=== PATIENT | male | born 1950 | race Caucasian/White ===

== ENCOUNTER 2022-11-26 18:18 | Emergency (ER) | payer MEDICARE, SELFPAY ==
--- NOTE | ~2022-11-26 | CT_ITS ---
EXAMINATION: CT HEAD WITHOUT CONTRAST CLINICAL INFORMATION: Worsening headache. COMPARISON: None available. TECHNIQUE: Contiguous axial imaging was performed from the skull base to vertex without intravenous administration of contrast. Multiplanar reformatted images are submitted. This CT examination was performed using dose optimization techniques as appropriate, variously including the following: *Automated exposure control *Adjustment of mA and/or kV according to patient size (this includes techniques or standardized protocols for targeted exams where dose is matched to indication/reason for exam; i.e. extremities or head) *Use of iterative reconstruction technique DLP: 680 mGy-cm FINDINGS: The ventricular system is normal in size and configuration. The bilateral hemispheres and the cerebellum show no acute mass, hemorrhage, infarction or extra-axial collection. The basilar cisterns are patent, and the sulci are not widened. The visualized paranasal sinuses appear clear. The mastoid air cells are well aerated and clear. CT/CT head/brain wo IV con IMPRESSION: No acute intracranial pathology.
[2022-11-26 18:25] VITALS: BP 181/98; PULSE 89; O2SAT 98
[2022-11-26 18:44] VITALS: BP 146/68; PULSE 68; RESP 18; TEMP 35.8; O2SAT 97; BMI 30.7
--- NOTE | 2022-11-26 18:44 | ECG_ITS ---
Test Reason : DIZZY Blood Pressure : / mmHG Vent. Rate : 073 BPM Atrial Rate : 073 BPM P-R Int : 170 ms QRS Dur : 096 ms QT Int : 410 ms P-R-T Axes : 028 070 017 degrees QTc Int : 451 ms Normal sinus rhythm Low voltage QRS Borderline ECG No previous ECGs available Referred By: Ana Cristina Gardiner Electronically Signed By:MARITZA CARRILLO
--- NOTE | 2022-11-26 18:49 | ED_ITS ---
HPI - Dizziness General Chief Complaint: Dizziness Stated Complaint: FLU LIKE SYMPTOMS Time Seen by Provider: 11/26/22 18:25 Source: patient Mode of arrival: EMS Limitations: no limitations History of Present Illness HPI Narrative: 72 yo male with PMH of vertigo, HTN, hyperlipidemia, hypothyroidism here with c/o headache and head feeling full for the last two days tonight went to get a drink at the bar (rarely drinks) and had one beer started to feel the room spinning anytime he moved. It reminds him of vertigo. He has no other neurologic symptoms but does feel slightly nauseated. He has not had a fever MD elicited complaint: dizziness Pertinent past history: BPPV Onset (ago): minute(s) (just prior to arrival ) Timing: sudden onset Severity: moderate Description: room spinning Context: change in body position History of similar symptoms: Yes Exacerbating factors: movement/ambulation and change in body position Relieving factors: rest, lying down and keeping eyes closed Associated symptoms: nausea and other (had a headache and ear fullness feeling 2 days prior) Related Data Previous Rx's Medication Instructions Recorded meclizine 25 mg tablet 25 mg PO TID PRN dizziness #30 tabs 11/26/22 ondansetron 4 mg disintegrating 4 mg PO Q8H PRN nausea and 11/26/22 tablet vomiting #20 tabs Allergies Allergy/AdvReac Type Severity Reaction Status Date / Time No Known Allergies Allergy Verified 11/26/22 18:42 [No Known Allergies*] Review of Systems Review of Systems: Constitutional : No Fever, No Chills, No Fatigue ENT/Mouth : No sore throat, No Rhinorrhea Eyes: No Eye Pain, No Swelling, No Redness Cardiovascular : No Chest Pain, No SOB, No Dyspnea on Exertion Respiratory : No Cough, No Sputum Gastrointestinal : pos Nausea, No Vomiting, No Diarrhea, No abdominal Pain Genitourinary : No Dysuria, No Urinary Frequency, No Hematuria, Musculoskeletal : No joint pain, No Myalgias, No Joint Swelling Skin : No Skin Lesions, No rash Neuro : No Weakness, No Numbness, pos Dizziness, positive Headache Psych : No Anxiety/Panic, No Depression Heme/Lymph: No Bruising, No Bleeding,No Lymphadenopathy Endocrine : No Polyuria, No Polydipsia All other systems reviewed and are negative [facility] Past Medical History Attestation statement: The following information was validated with the patient. Medical History Hyperlipidemia Hypertension Hypothyroidism Social History Social History Alcohol intake: current Alcohol intake frequency: 0-2 drinks per day Alcohol type: beer Patient Tobacco Use Status: Former Tobacco user Smoked in Last 30 Days: Yes Use of substances other than those prescribed or required for medical reasons: No Advance Directives: No Advance Directives Information Provided: No Physical Exam Vital Signs: Vital Signs: Last Vital Signs Temp 97.2 F 11/26/22 21:32 Pulse 84 11/26/22 21:32 Resp 16 11/26/22 21:32 BP 129/91 H 11/26/22 21:32 Pulse Ox 98 11/26/22 21:32 O2 Del Method Room Air 11/26/22 21:32 BMI result Body Mass Index 30.7 Appearance: Alert. Oriented X3. No acute distress. Eyes: Pupils equal, round and reactive to light. no nystagmus ENT: Pharynx normal. Neck: Normal inspection. Neck supple. CVS: Normal heart rate and rhythm. Pulses normal. Respiratory: No respiratory distress. Breath sounds normal. Abdomen: Soft and non-tender. Skin: Skin warm and dry. Normal skin color. Normal skin turgor. Extremities: No lower extremity edema. No calf ttp Neuro: Oriented X 3. No motor deficit. No sensory deficit. no dizziness when laying still occurs when he turns his head to the right Course Course Course Narrative: states symptoms fully resolved and feels much better - can sit up and has no dizziness, feels well enough to go home Medications Administered Discontinued Medications Generic Name Dose Route Start Last Admin Trade Name Alvinq PRN Reason Stop Dose Admin Lactated Ringer's 1,000 mls @ 999 mls/hr 11/26/22 18:45 11/26/22 20:39 Lr IV 11/26/22 19:45 Infused .Q1H1M AYSHA Infusion Meclizine HCl 25 mg 11/26/22 18:43 11/26/22 19:00 Meclizine Hcl 25 Mg Tablet PO 11/26/22 18:44 25 mg ONCE ONE Administration Ondansetron HCl 4 mg 11/26/22 18:43 11/26/22 19:00 Ondansetron Hcl 4 Mg/2 Ml Vial IVPUSH 11/26/22 18:44 4 mg ONCE ONE Administration Medical Decision Making Medical Decision Making [facility] Narrative: 72 yo male with PMH of PMH of vertigo, HTN, hyperlipidemia, hypothyroidism here with c/o dizziness room spinning no other neurologic deficits no neck pain mild headache and preceding ear fullness - at this time I will obtain basic labs, EKG, CT head for mass - given headache his symptoms go away with rest and closing eyes he has no numbness, weakness, vision changes or + 1 symptoms to suggest posterior stroke. IVF and medications ordered. Differential Diagnosis Differential Diagnoses: The differential diagnosis associated with the presentation includes vertigo, meniere's, dehydration, sinusitis Lab Data [facility] Lab Attestation statement: I reviewed the patient's lab results. 11/26/22 19:02 11/26/22 19:02 Labs: Lab Results 11/26/22 11/26/22 11/26/22 Range/Units 19:02 19:02 19:02 WBC 5.6 (4.8-10.8) X10*3/uL RBC 4.86 (4.60-5.80) X10*6/uL Hgb 15.3 (14.0-18.0) g/dl Hct 43.8 (42.0-52.0) % MCV 90.1 (80.0-98.0) fL MCH 31.5 (27.0-33.0) pg MCHC 34.9 (31.0-36.0) g/dl RDW 12.7 (11.0-16.0) % Plt Count 159 L (160-400) X10*3/uL MPV 9.7 (9.4-12.4) fL Immature Gran % (Auto) 0.4 (0.0-0.4) % Neut % (Auto) 63.5 (45-73) % Lymph % (Auto) 22.0 (20-40) % Kleberg % (Auto) 12.0 H (2-11) % Eos % (Auto) 1.4 (0-4) % Baso % (Auto) 0.7 (0-2) % Lymph # (Auto) 1.2 (1.2-4.9) X10*3/uL Kleberg # (Auto) 0.7 (0.1-1.2) X10*3/uL Eos # (Auto) 0.1 (0.0-0.4) X10*3/uL Baso # (Auto) 0.0 (0.0-0.2) X10*3/uL Abs Immat Gran (auto) 0.02 (0.00-0.03) X10*3/uL Absolute Neuts (auto) 3.6 (2.0-8.3) x10*3/uL Absolute Nucleated RBC 0.000 (0.0-0.012) X10*3/uL Nucleated RBC % (auto) 0.0 (0.0-0.2) /100WBC Sodium 139 (135-145) mmol/L Potassium 4.0 (3.3-5.1) mmol/L Chloride 109 H (96-108) mmol/L Carbon Dioxide 22 (22-29) mmol/L Anion Gap 12 (12-20) BUN 12 (9-16) mg/dL Creatinine 0.97 (0.5-1.4) mg/dL Estim Creat Clear Calc 85.2 Estimated GFR > 60 Random Glucose 115 (60-115) mg/dL Calcium 9.4 (8.4-10.2) mg/dL Magnesium 1.9 (1.6-2.6) mg/dL Total Bilirubin 0.6 (0.0-1.0) mg/dL Direct Bilirubin 0.2 (0.0-0.5) mg/dL AST 25 (5-37) U/L ALT 33 (0-40) U/L Alkaline Phosphatase 74 (39-117) U/L Troponin I High Sens < 2.7 (<3.5-35.0) ng/L Total Protein 7.0 (6.5-8.0) g/dL Albumin 4.1 (3.5-5.0) g/dL COVID-19 (MARY) (Negative) COVID-19 Clin Com 11/26/22 Range/Units 19:02 WBC (4.8-10.8) X10*3/uL RBC (4.60-5.80) X10*6/uL Hgb (14.0-18.0) g/dl Hct (42.0-52.0) % MCV (80.0-98.0) fL MCH (27.0-33.0) pg MCHC (31.0-36.0) g/dl RDW (11.0-16.0) % Plt Count (160-400) X10*3/uL MPV (9.4-12.4) fL Immature Gran % (Auto) (0.0-0.4) % Neut % (Auto) (45-73) % Lymph % (Auto) (20-40) % Kleberg % (Auto) (2-11) % Eos % (Auto) (0-4) % Baso % (Auto) (0-2) % Lymph # (Auto) (1.2-4.9) X10*3/uL Kleberg # (Auto) (0.1-1.2) X10*3/uL Eos # (Auto) (0.0-0.4) X10*3/uL Baso # (Auto) (0.0-0.2) X10*3/uL Abs Immat Gran (auto) (0.00-0.03) X10*3/uL Absolute Neuts (auto) (2.0-8.3) x10*3/uL Absolute Nucleated RBC (0.0-0.012) X10*3/uL Nucleated RBC % (auto) (0.0-0.2) /100WBC Sodium (135-145) mmol/L Potassium (3.3-5.1) mmol/L Chloride (96-108) mmol/L Carbon Dioxide (22-29) mmol/L Anion Gap (12-20) BUN (9-16) mg/dL Creatinine (0.5-1.4) mg/dL Estim Creat Clear Calc Estimated GFR Random Glucose (60-115) mg/dL Calcium (8.4-10.2) mg/dL Magnesium (1.6-2.6) mg/dL Total Bilirubin (0.0-1.0) mg/dL Direct Bilirubin (0.0-0.5) mg/dL AST (5-37) U/L ALT (0-40) U/L Alkaline Phosphatase (39-117) U/L Troponin I High Sens (<3.5-35.0) ng/L Total Protein (6.5-8.0) g/dL Albumin (3.5-5.0) g/dL COVID-19 (MARY) Negative (Negative) COVID-19 Clin Com See Note Independent Interpretation I performed an independent interpretation of an: EKG and CT Scan (no ICH) Interpretation: Rate: 73 Rhythm: NSR Enola: normal Normal P waves. Normal CORY. Normal QRS complex. ST T wave : normal no TREVON qTC: normal prior studies: no acute ischemia The study has been interpreted contemporaneously by me. . Radiology Impression Discussion of test interpretation with radiology: I have reviewed the radiologist's reading. Prescription Management I considered prescription management with: Other (zofran and meclizine) Discharge Plan Discharge Clinical Impression: Vertigo Patient Disposition: Home, Self-Care Instructions: Vertigo (ED) Additional Instructions: return for worsening pain, numbness, tingling, weakness, increased dizziness, vision changes or any other concerns. Prescriptions: New meclizine 25 mg tablet 25 mg PO TID PRN (Reason: dizziness) Qty: 30 0RF ondansetron 4 mg tablet,disintegrating 4 mg PO Q8H PRN (Reason: nausea and vomiting) Qty: 20 0RF
[2022-11-26] MEDS: Lactated Ringers 1,000 ML 999 ML IV (18:59)
[2022-11-26] MEDS: ondansetron HCL 4 MG/2 ML VIAL IVPUSH (19:00)
[2022-11-26] MEDS: Meclizine HCl 25 MG TABLET PO (19:00)
[2022-11-26 19:11] LABS: MANUAL DIFF FLAG NO
[2022-11-26 19:13] LABS: Basophils Percent Auto 0.7 % (0-2); Eosinophils Absolute Auto 0.1 X10*3/uL (0.0-0.4); Eosinophils Percent Auto 1.4 % (0-4); Hematocrit 43.8 % (42.0-52.0); Hemoglobin 15.3 g/dl (14.0-18.0); Imm Gran Abs Auto 0.02 X10*3/uL (0.00-0.03); Imm Gran Pct Auto 0.4 % (0.0-0.4); Lymphocytes Absolute Auto 1.2 X10*3/uL (1.2-4.9); Mean Corpuscular HGB Conc 34.9 g/dl (31.0-36.0); Mean Corpuscular Hemoglobin 31.5 pg (27.0-33.0); Mean Corpuscular Volume 90.1 fL (80.0-98.0); Mean Platelet Volume 9.7 fL (9.4-12.4); Monocytes Absolute Auto 0.7 X10*3/uL (0.1-1.2); Neutrophils Absolute Auto 3.6 x10*3/uL (2.0-8.3); Neutrophils Percent Auto 63.5 % (45-73); Platelet Count 159 X10*3/uL (160-400); Red Blood Count 4.86 X10*6/uL (4.60-5.80); Red Cell Distribution Width 12.7 % (11.0-16.0); White Blood Count 5.6 X10*3/uL (4.8-10.8)
[2022-11-26 19:29] LABS: COVID-19 Test Negative (Negative); IDNOW Serial# 08D9AD1C
[2022-11-26 19:32] LABS: Alanine Aminotransferase 33 U/L (0-40); Albumin Level 4.1 g/dL (3.5-5.0); Alkaline Phosphatase 74 U/L (39-117); Anion Gap 12 (12-20); Aspartate Amino Transferase 25 U/L (5-37); Bilirubin Direct 0.2 mg/dL (0.0-0.5); Bilirubin Total 0.6 mg/dL (0.0-1.0); Blood Urea Nitrogen 12 mg/dL (9-16); Calcium 9.4 mg/dL (8.4-10.2); Carbon Dioxide 22 mmol/L (22-29); Chloride 109 mmol/L (96-108); Creatinine Clr Calc Pharmacy 85.2; Estimated Glomerular Filt Rate > 60; Glucose Random 115 mg/dL (60-115); Magnesium 1.9 mg/dL (1.6-2.6); Sodium 139 mmol/L (135-145)
[2022-11-26 19:41] LABS: Troponin-I High Sensitivity < 2.7 ng/L (<3.5-35.0)
--- OUTSIDE RECORDS SUMMARY | 2022-11-26 19:45 | XMS_ITS | Continuity of Care Document ---
Author Name Unknown Organization [facility] Address [address] [facility] [place] [address]- Care Team Providers Care Leadership Coach Name Role Phone Juanito Huerta MD Primary Care Physician [phone] Encounter [facility] Date(s): 01/18/20 - 01/25/20 [facility] [address] [place] [address]- [facility] Attending Physician: Harmeet Galarza MD Admitting Physician: Harmeet Galarza MD Referring Physician: Juanito Huerta MD Allergies, Adverse Reactions, Alerts Substance Reaction Severity Status NKA Active Immunizations Given and Recorded Vaccine Date Status Refusal Reason influenza virus vaccine, inactivated 06/08/19 Give n influenza virus vaccine, inactivated 1 03/17/18 Gi noemí influenza virus vaccine, inactivated 2 03/17/17 Gi noemí pneumococcal 23-valent vaccine 3 03/17/18 Given tetanus/diphtheria/pertussis, acel(Tdap) 4 09/15/17 Given pneumococcal 13-valent vaccine 03/17/17 Given 1Result Comment: [03/17/2018] [facility] [id number] 2Result Comment: [03/17/2017] [facility] [id number] 3Result Comment: [03/17/2018] [facility] [id number] 4Result Comment: [09/15/2017] [facility] [id number] Medications aspirin 81 mg oral tablet 1 tablet = 81 mg, By Mouth, Daily, # 90 tablet, 0 Refills, Maintenance, 03/17/17 10:56:05, Tablet Start Date: 03/17/17 Status: Ordered levothyroxine 0.05 mg oral tablet 1 tablet = 50 mcg, By Mouth, Daily, # 90 tablet, 1 Refills, Maintenance, 08/24/19 13:11:00 EDT, Tablet, [id number], 179.4, cm, 06/08/19 14:11:00 EST, Height Start Date: 08/24/19 Status: Ordered lisinopril 10 mg oral tablet 10 mg, 1, tablet, By Mouth, Daily, # 90 tablet, Refills 1, Tot. Refills 1, Maintenance, 08/24/19 13:11:00 EDT, Route to Pharmacy Electronically, [id number], 179.4, cm, 06/08/19 14:11:00 EST, Height Start Date: 08/24/19 Status: Ordered pravastatin 40 mg oral tablet 1 tablet = 40 mg, By Mouth, Daily, # 90 tablet, 1 Refills, Maintenance, 08/24/19 13:11:00 EDT, Tablet, [facility], 179.4, cm, 06/08/19 14:11:00 EST, Height Start Date: 08/24/19 Status: Ordered Problem List Condition Effective Dates Status Health Status Inform ant Hypothyroidism (acquired)(Confirmed) Active Benign essential hypertension(Confirmed) Active Hyperlipidemia(Confirmed) Active Left inguinal hernia(Confirmed) Active Small bowel obstruction(Confirmed) Active Vital Signs Most recent to oldest [Reference Range]: 1 Height 179.4 cm (01/18/20 10:54 AM) Pulse Rate [55-90 bpm] 80 bpm (01/18/20 10:54 AM) Blood Pressure [90-138/55-84 mm Hg] 127/ 83mm Hg (01/18/20 10:54 AM) Temperature [96.8-100.4 DegF] 98.6 DegF (01/18/20 10:54 AM) Blood pressure sites Arm, right (01/18/20 10:54 AM) Temperature Route Oral (01/18/20 10:54 AM) Social History Social History Type Response Smoking Status Former smoker; Type: Cigarettes; Other: QUIT 1977-SMOKING 1/2 PPD-8 YR SMOKING HX; entered on: 03/17/17 Sex
--- OUTSIDE RECORDS SUMMARY | 2022-11-26 19:45 | XMS_ITS | Continuity of Care Document ---
Author Name Unknown Organization [facility] Address [address] [place] [address]- Care Team Providers Care Title Insurance Sales Representative Name Role Phone Juanito Huerta MD Primary Care Physician [facility] Date(s): 12/07/19 - 12/14/19 [facility] [address] [place] [address]- [facility] Attending Physician: Juanito Huerta MD Allergies, Adverse Reactions, [...] 13-valent vaccine 03/17/17 Given 1Result Comment: [03/17/2018] [facility] [id number] 2Result Comment: [03/17/2017] [facility] [id number] 3Result Comment: [03/17/2018] [facility] [id number] 4Result Comment: [09/15/2017] [facility] [id number] Medications aspirin 81 mg oral tablet 1 tablet = 81 mg, By Mouth, Daily, # 90 tablet, 0 Refills, Maintenance, 03/17/17 10:56:05, Tablet Start Date: 03/17/17 Status: Ordered levothyroxine 0.05 mg oral tablet 1 tablet = 50 mcg, By Mouth, Daily, # 90 tablet, 1 Refills, Maintenance, 08/24/19 13:11:00 EDT, Tablet, [id number], 179.4, cm, 06/08/19 14:11:00 EST, Height Start Date: 08/24/19 Status: Ordered lisinopril 10 mg oral tablet 10 mg, 1, tablet, By Mouth, Daily, # 90 tablet, Refills 1, Tot. Refills 1, Maintenance, 08/24/19 13:11:00 EDT, Route to Pharmacy Electronically, [id number], 179.4, cm, 06/08/19 14:11:00 EST, Height Start Date: 08/24/19 Status: Ordered pravastatin 40 mg oral tablet 1 tablet = 40 mg, By Mouth, Daily, # 90 tablet, 1 Refills, Maintenance, 08/24/19 13:11:00 EDT, Tablet, [facility], 179.4, cm, 06/08/19 14:11:00 EST, Height Start Date: 08/24/19 Status: Ordered Problem List Condition Effective Dates Status Health Status Inform ant Hypothyroidism (acquired)(Confirmed) Active Benign essential hypertension(Confirmed) Active Hyperlipidemia(Confirmed) Active Left inguinal hernia(Confirmed) Active Small bowel obstruction(Confirmed) Active Vital Signs Most recent to oldest [Reference Range]: 1 Height 179.4 cm (12/07/19 6:59 AM) Weight 102.0 kg (12/07/19 6:59 AM) Oxygen Saturation [94-100 %] 96 % (12/07/19 6:59 AM) Pulse Rate [55-90 bpm] 60 bpm (12/07/19 6:59 AM) Body Mass Index [18.5-24.99] 31.69 *>HHI* (12/07/19 6:59 AM) Blood Pressure [90-138/55-84 mm Hg] 130/ 70mm Hg (12/07/19 6:59 AM) Temperature [96.8-100.4 DegF] 98.4 DegF (12/07/19 6:59 AM) Mode of Delivery (Oxygen) Room air (12/07/19 6:59 AM) Blood pressure sites Arm, left (12/07/19 6:59 AM) Temperature Route Oral (12/07/19 6:59 AM) Weight Obtained Via Standing scale (12/07/19 6:59 AM) Social History Social History Type Response Smoking Status Former smoker; Type: Cigarettes; Other: QUIT 1976-SMOKING 1/2 PPD-8 YR SMOKING HX; entered on: 03/17/17 Sex
--- OUTSIDE RECORDS SUMMARY | 2022-11-26 19:45 | XMS_ITS | Continuity of Care Document ---
Author Name Unknown Organization [facility] Address [address] [place] [address]- Care Team Providers Care Photograph Retoucher Name Role Phone Juanito Huerta MD Primary Care Physician Encounter [facility] Date(s): 06/08/19 - 06/15/19 [facility] [address] [place] [address]- [facility] Attending Physician: Juanito Huerta MD Allergies, [...] 13-valent vaccine 03/17/17 Given 1Result Comment: [03/17/2018] [facility] [id number] 2Result Comment: [03/17/2017] [facility] [id number] 3Result Comment: [03/17/2018] [facility] [id number] 4Result Comment: [09/15/2017] [facility] [id number] Medications aspirin 81 mg oral tablet 1 tablet = 81 mg, By Mouth, Daily, # 90 tablet, 0 Refills, Maintenance, 03/17/17 10:56:05, Tablet Start Date: 03/17/17 Status: Ordered levothyroxine 0.05 mg oral tablet 1 tablet = 50 mcg, By Mouth, Daily, # 90 tablet, 3 Refills, Maintenance, 06/16/18 6:48:30 EST, Tablet Start Date: 06/16/18 Status: Ordered lisinopril 10 mg oral tablet 10 mg, 1, tablet, By Mouth, Daily, # 90 tablet, Refills 3, Tot. Refills 3, Maintenance, 07/19/18 14:29:15 EST, Route to Pharmacy Electronically, [id number] [id number] Start Date: 07/19/18 Status: Ordered pravastatin 40 mg oral tablet 1 tablet = 40 mg, By Mouth, Daily, # 90 tablet, 3 Refills, Maintenance, 07/19/18 14:29:27 EST, Tablet Start Date: 07/19/18 Status: Ordered Problem List Condition Effective Dates Status Health Status Inform ant Hypothyroidism (acquired)(Confirmed) Active Benign essential hypertension(Confirmed) Active Hyperlipidemia(Confirmed) Active Left inguinal hernia(Confirmed) Active Small bowel obstruction(Confirmed) Active Vital Signs Most recent to oldest [Reference Range]: 1 Height 179.4 cm (06/08/19 2:11 PM) Weight 103.6 kg (06/08/19 2:11 PM) Oxygen Saturation [94-100 %] 98 % (06/08/19 2:11 PM) Pulse Rate [55-90 bpm] 89 bpm (06/08/19 2:11 PM) Body Mass Index [18.5-24.99] 32.19 *>HHI* (06/08/19 2:11 PM) Blood Pressure [90-138/55-84 mm Hg] 124/ 80mm Hg (06/08/19 2:11 PM) Temperature [96.8-100.4 DegF] 97.7 DegF (06/08/19 2:11 PM) Blood pressure sites Arm, left (06/08/19 2:11 PM) Social History Social History Type Response Smoking Status Former smoker; Type: Cigarettes; Other: QUIT 1976-SMOKING / PPD-8 YR SMOKING HX; entered on: 03/17/17 Sex
--- OUTSIDE RECORDS SUMMARY | 2022-11-26 19:45 | XMS_ITS | Continuity of Care Document ---
Author Name Unknown Organization [facility] Address [address] [facility] [place] [address]- Care Team Providers Care Roll Capper Name Role Phone Deanna MARQUEZ, Juanito Nash Primary Care Physician Encounter [facility] Date(s): 12/09/19 - 01/08/20 [facility] [address] [place] [address]- [facility] Allergies, Adverse Reactions, Alerts Substance Reaction Severity Status NKA Active Immunizations Given and Recorded Vaccine Date Status Refusal Reason influenza virus vaccine, inactivated 06/08/19 Give n influenza virus vaccine, inactivated 1 03/17/18 Gi noemí influenza virus vaccine, inactivated 2 03/17/17 Gi noemí pneumococcal 23-valent vaccine 3 03/17/18 Given tetanus/diphtheria/pertussis, acel(Tdap) 4 09/15/17 Given pneumococcal 13-valent vaccine 03/17/17 Given 1Result Comment: [03/17/2018] [facility] [id number] 2Result Comment: [03/17/2017] [facility] [id number] 3Result Comment: [03/17/2018] [facility] [id number] 4Result Comment: [09/15/2017] [facility] [id number] Medications aspirin 81 mg oral tablet 1 tablet = 81 mg, By Mouth, Daily, # 90 tablet, 0 Refills, Maintenance, 03/17/17 10:56:05, Tablet Start Date: 03/17/17 Status: Ordered levothyroxine 0.05 mg oral tablet 1 tablet = 50 mcg, By Mouth, Daily, # 90 tablet, 1 Refills, Maintenance, 08/24/19 13:11:00 EDT, Tablet, [facility], 179.4, cm, 06/08/19 14:11:00 EST, Height Start Date: 08/24/19 Status: Ordered lisinopril 10 mg oral tablet 10 mg, 1, tablet, By Mouth, Daily, # 90 tablet, Refills 1, Tot. Refills 1, Maintenance, 08/24/19 13:11:00 EDT, Route to Pharmacy Electronically, [facility], 179.4, cm, 06/08/19 14:11:00 EST, Height Start Date: 08/24/19 Status: Ordered pravastatin 40 mg oral tablet 1 tablet = 40 mg, By Mouth, Daily, # 90 tablet, 1 Refills, Maintenance, 08/24/19 13:11:00 EDT, Tablet, [facility], 179.4, cm, 06/08/19 14:11:00 EST, Height Start Date: 08/24/19 Status: Ordered Problem List Condition Effective Dates Status Health Status Inform ant Hypothyroidism (acquired)(Confirmed) Active Benign essential hypertension(Confirmed) Active Hyperlipidemia(Confirmed) Active Left inguinal hernia(Confirmed) Active Small bowel obstruction(Confirmed) Active Social History Social History Type Response Smoking Status Former smoker; Type: Cigarettes; Other: QUIT 1976-SMOKING 1/2 PPD-8 YR SMOKING HX; entered on: 03/17/17 Sex
--- OUTSIDE RECORDS SUMMARY | 2022-11-26 19:45 | XMS_ITS | Continuity of Care Document ---
Author Name Unknown Organization [facility] Address [address] [place] [address] [address] [place] [address]- Care Team Providers Care Urology Nurse Name Role Phone Deanna MARQUEZ, Juanito Nash Primary Care Physician Encounter [facility] Date(s): 04/18/19 - 08/16/[address] [place] [address]- [facility] Attending Physician: Mi Stafford MD Allergies, Adverse Reactions, Alerts Substance Reaction Severity Status NKA Active Immunizations Given and Recorded Vaccine Date Status Refusal Reason influenza virus vaccine, inactivated 06/08/19 Give n influenza virus vaccine, inactivated 1 03/17/18 Gi noemí influenza virus vaccine, inactivated 2 03/17/17 Gi noemí pneumococcal 23-valent vaccine 3 03/17/18 Given tetanus/diphtheria/pertussis, acel(Tdap) 4 09/15/17 Given pneumococcal 13-valent vaccine 03/17/17 Given 1Result Comment: [03/17/2018] [facility] [id number] 2Result Comment: [03/17/2017] [facility] [id number] 3Result Comment: [03/17/2018] [facility] [id number] 4Result Comment: [09/15/2017] [facility] [id number] Medications aspirin 81 mg oral tablet 1 [...] 07/19/18 14:29:15 EST, Route to Pharmacy Electronically, [id number], [facility] [id number] Start Date: 07/19/18 Status: Ordered pravastatin 40 [...] Former smoker; Type: Cigarettes; Other: QUIT 1976-SMOKING /2 PPD-8 YR SMOKING HX; entered on: 03/17/17 Sex
--- OUTSIDE RECORDS SUMMARY | 2022-11-26 19:45 | XMS_ITS | Continuity of Care Document ---
Author Name Unknown Organization [facility] Devante Baxter Giovany lt Address [address] [place] [address]- Care Team Providers Care Yeast Fermentation Attendant Name Role Phone Juanito Huerta MD Primary Care Physician Encounter [facility] Date(s): 09/08/22 - 09/15/22 [facility] Devante Baxter Adult [address] [place] [address]- Attending Physician: Juanito Huerta MD Allergies, Adverse Reactions, Alerts No Known Allergies Immunizations Given and Recorded Vaccine Date Status Refusal Reason influenza virus vaccine, inactivated 03/11/22 Give n influenza virus vaccine, inactivated 04/05/20 Hay rded influenza virus vaccine, inactivated 06/08/19 Give n influenza virus vaccine, inactivated 1 03/17/18 Gi noemí influenza virus vaccine, inactivated 2 03/17/17 Gi noemí influenza virus vaccine, inactivated 02/17/15 Hay rded SARS-CoV-2 (COVID-19) mRNA-1273 vaccine 09/12/21 R ecorded SARS-CoV-2 (COVID-19) mRNA BNT-162b2 vac 10/10/20 Recorded SARS-CoV-2 (COVID-19) mRNA BNT-162b2 vac 09/19/20 Recorded pneumococcal 23-valent vaccine 3 03/17/18 Given tetanus/diphtheria/pertussis, acel(Tdap) 4 09/15/17 Given pneumococcal 13-valent vaccine 03/17/17 Given 1Result Comment: [03/17/2018] [facility] 4921-403-88 2Result Comment: [03/17/2017] [facility] 58998-506-91 3Result Comment: [03/17/2018] [facility] [id number] 4Result Comment: [09/15/2017] [facility] 69633-674-50 Medications aspirin 81 mg oral tablet 1 tablet = 81 mg, By Mouth, Daily, # 90 tablet, 0 Refills, Maintenance, 03/17/17 10:56:05, Tablet Start Date: 03/17/17 Status: Ordered Flonase 50 mcg/inh nasal spray 1 sprays, Nares, Both, 2 times a day, # 16 Gm, 0 Refills, Maintenance, 08/25/22 10:17:00 EDT, [place], [facility], Partial fill upon patient request if the prescription is for a schedule II opioid drug., 1 sprays Nares, Both 2 times a day, 17... Start Date: 08/25/22 Status: Ordered levothyroxine 0.05 mg oral tablet 1 tablet, By Mouth, Daily, # 90 tablet, 1 Refills, Maintenance, 06/30/22 14:10:00 EST, [facility], 179.4, cm, 03/11/22 12:43:00 EDT, Height Start Date: 06/30/22 Status: Ordered lisinopril 10 mg oral tablet 1, tablet, By Mouth, Daily, # 90 tablet, Refills 1, Tot. Refills 1, Maintenance, 06/30/22 14:18:00 EST, Route to Pharmacy Electronically, [facility], 179.4, cm, 03/11/22 12:43:00 EDT, Height Start Date: 06/30/22 Status: Ordered pravastatin 40 mg oral tablet 1 tablet, By Mouth, Daily, # 90 tablet, 1 Refills, Maintenance, 06/30/22 14:10:00 EST, [facility], 179.4, cm, 03/11/22 12:43:00 EDT, Height Start Date: 06/30/22 Status: Ordered Problem List Condition Confirmation Course Effective Dates Status H ealth Status Informant Hypothyroidism (acquired) Confirmed Active Benign essential hypertension Confirmed Active Hyperlipidemia Confirmed Active Left inguinal hernia Confirmed Active Pulmonary nodule Confirmed Active Obese class I Confirmed Active Prediabetes Confirmed Active Small bowel obstruction Confirmed Active Vital Signs Most recent to oldest [Reference Range]: 1 Height 178.0 cm (09/08/22 2:25 PM) Weight 103.9 kg (09/08/22 2:25 PM) Oxygen Saturation [94-100 %] 97 % (09/08/22 2:25 PM) Pulse Rate [55-90 bpm] 82 bpm (09/08/22 2:25 PM) Body Mass Index [18.5-24.99 kg/m2] 32.79 kg/m2 *>HHI* (09/08/22 2:25 PM) Blood Pressure [90-138/55-84 mm Hg] 128/ 71mm Hg (09/08/22 2:25 PM) Mode of Delivery (Oxygen) Room air (09/08/22 2:25 PM) Blood pressure sites Arm, left (09/08/22 2:25 PM) Weight Obtained Via Standing scale (09/08/22 2:25 PM) Social History Social History Type Response Smoking Status Former smoker; Type: Cigarettes; Other: QUIT 1977-SMOKING 1/2 PPD-8 YR SMOKING HX; entered on: 03/17/17 Sex Note * Rosalinda Grant: PERFORM, SIGN, VERIFY Event Display: Patient Education/Instruction Authored Date: [id number] [facility] *BMP So Sahil Diaz Clinical Summary Name REZA BOURGEOIS Age 72 Years 1950 PCP Deanna MARQUEZ, Juanito Nash PCP Visit Date 09/08/2022 14:17:00 Additional Instructions: Scheduled Appointments?? Future Appointments ?No Future Appointments Scheduled Follow-Up Instructions ?? Diagnosis Hypothyroidism, unspecified; Unilateral inguinal hernia, without obstruction or gangrene, not specified as recurrent; Impacted cerumen, unspecified ear; Essential (primary) hypertension; Encounter for general adult medical examination without abnormal findings; Hyperlipidemia, unspecified Medications: Please continue your medications until treatment is completed or stopped by your provider. Discuss any questions related to medications with your provider. Medications to Continue with No Changes These medications were not printed or sent to your pharmacy Aspirin (aspirin 81 mg oral tablet) 1 tab(s) Oral Daily. Next Dose: Fluticasone Nasal (Flonase 50 mcg/inh nasal spray) 1 spray(s) Nares, Both twice a day. Refills: 0. Next Dose: Levothyroxine (levothyroxine 0.05 mg oral tablet) 1 tab(s) Oral Daily. Refills: 1. Next Dose: Lisinopril (lisinopril 10 mg oral tablet) 1 tab(s) Oral Daily. Refills: 1. Next Dose: Pravastatin (pravastatin 40 mg oral tablet) 1 tab(s) Oral Daily. Refills: 1. Next Dose: Allergy Info:?? NKA Medications Given This Visit Future Orders ?No future orders Vital Signs Height 178.0 cm Weight 103.9 kg BMI 32.79 kg/m2 Blood Pressure 128 mm Hg/71 mm Hg Temperature Pulse Rate 82 bpm Respiratory Rate 02 Sat Mode of Delivery 97 %/Room air You can now view a summary of your hospital visit from the comfort of your home through a free online portal called [employer]. [employer] is a website that allows you to securely view your medical information including discharge summary, medications and follow-up visits. ??You can alsosend a secure electronic message to your doctor???s office to request appointments, renew medications or just ask a question. You can enroll at [email or web address] or register during your next office visit. Disclaimer:?? The information provided is of a general nature and is intended to be used in conjunction with the recommendations and advice of your health care practitioner. ??Every effort has been made to ensure that the information provided is accurate and complete at the time it is provided to you however, as your needs change, or, as new ??information becomes available, different or additional instructions may be required. If you have questions, please consult with your primary care provider or pharmacist, as appropriate. ??This information is not intended to serve as substitution for assessment and evaluation by a qualified health care provider. If you do not have a primary care provider, you may find a [facility] provider by calling [facility] at [phone]. For information about the plan of care including goals and instructions for your diagnosis, please see the patient education orders section of this document. Patient Education Materials?? The content of this educational material or handout may have been modified, supplemented, or adapted from its original content and format to support your individualized medical care. Patient Care team information Care Team Personnel Name: Deanna MARQUEZ, Juanito Nash Position: [facility] Primary Care Physician Member Role: PCP Address: Address: [address] [place] [address]- Care Team Related Persons Name: KENTON BOURGEOIS
--- OUTSIDE RECORDS SUMMARY | 2022-11-26 19:45 | XMS_ITS | Continuity of Care Document ---
Author Name Unknown Organization [facility] Sahil Giovany lt Address [address] [place] [address]- Care Team Providers Care Education Research Analyst Name Role Phone Juanito Huerta MD Primary Care Physician Encounter [facility] [place] Date(s): 09/04/21 - 09/11/21 [facility] Sahil Adult [address] [place] [address]- Attending Physician: Juanito Huerta MD Allergies, Adverse Reactions, Alerts No Known Allergies Immunizations Given and Recorded Vaccine Date Status Refusal Reason SARS-CoV-2 (COVID-19) mRNA BNT-162b2 vac 10/10/20 Recorded SARS-CoV-2 (COVID-19) mRNA BNT-162b2 vac 09/19/20 Recorded influenza virus vaccine, inactivated 04/05/20 Hay rded influenza virus vaccine, inactivated 06/08/19 Give n influenza virus vaccine, inactivated 1 03/17/18 Gi noemí influenza virus vaccine, inactivated 2 03/17/17 Gi noemí influenza virus vaccine, inactivated 02/17/15 Hay rded pneumococcal 23-valent vaccine 3 03/17/18 Given tetanus/diphtheria/pertussis, acel(Tdap) 4 09/15/17 Given pneumococcal 13-valent vaccine 03/17/17 Given 1Result Comment: [03/17/2018] [facility] 4921-403-88 2Result Comment: [03/17/2017] [facility] 26828-530-02 3Result Comment: [03/17/2018] [facility] [id number] 4Result Comment: [09/15/2017] [facility] 46121-782-40 Medications aspirin 81 mg oral tablet 1 tablet = 81 mg, By Mouth, Daily, # 90 tablet, 0 Refills, Maintenance, 10/11/17 10:56:05, Tablet Start Date: 03/17/17 Status: Ordered levothyroxine 0.05 mg oral tablet 1 tablet = 50 mcg, By Mouth, Daily, # 90 tablet, 3 Refills, Maintenance, 06/14/20 7:11:00 EST, [place], [facility], 179.4, cm, 06/14/20 6:58:00 EST, Height Start Date: 06/14/20 Status: Ordered lisinopril 10 mg oral tablet 1, tablet, By Mouth, Daily, # 90 tablet, Refills 1, Route to Pharmacy Electronically, [facility], 179.4, cm, 02/20/21 9:48:00 EDT, Height Start Date: 06/25/21 Status: Ordered pravastatin 40 mg oral tablet 1 tablet, By Mouth, Daily, # 90 tablet, 1 Refills, [facility], 179.4, cm, 02/20/21 9:48:00 EDT, Height Start Date: 06/25/21 Status: Ordered Problem List Condition Effective Dates Status Health Status Inform ant Hypothyroidism (acquired)(Confirmed) Active Benign essential hypertension(Confirmed) Active Hyperlipidemia(Confirmed) Active Left inguinal hernia(Confirmed) Active Pulmonary nodule(Confirmed) Active Obese class I(Confirmed) Active Prediabetes(Confirmed) Active Small bowel obstruction(Confirmed) Active Vital Signs Most recent to oldest [Reference Range]: 1 2 Height 179.4 cm (09/04/21 9:06 AM) 179.4 cm (09/04/21 9:00 AM) Weight 101.1 kg (09/04/21 9:06 AM) 101.1 kg (09/04/21 9:00 AM) Oxygen Saturation [94-100 %] 98 % (09/04/21 9:06 AM) Pulse Rate [55-90 bpm] 78 bpm (09/04/21 9:06 AM) Body Mass Index [18.5-24.99] 31.41 *>HHI* (09/04/21 9:06 AM) 31.41 *>HHI* (09/04/21 9:00 AM) Blood Pressure [90-138/55-84 mm Hg] 130/ 77mm Hg (09/04/21 9:06 AM) Temperature [96.8-100.4 DegF] 97.9 DegF (09/04/21 9:06 AM) Mode of Delivery (Oxygen) Room air (09/04/21 9:06 AM) Blood pressure sites Arm, left (09/04/21 9:06 AM) Temperature Route Oral (09/04/21 9:06 AM) Social History Social History Type Response Smoking Status Former smoker; Type: Cigarettes; Other: QUIT 1976-SMOKING 1/2 PPD-8 YR SMOKING HX; entered on: 03/17/17 Sex
--- OUTSIDE RECORDS SUMMARY | 2022-11-26 19:45 | XMS_ITS | Continuity of Care Document ---
Author Name Unknown Organization [facility] Giovany lt Address [address] [place] [address]- Care Team Providers Care Python Web Developer Name Role Phone Juanito Huerta MD Primary Care Physician Encounter [facility] Date(s): 02/20/21 - 02/27/21 [facility] Adult [address] [place] [address]- Attending Physician: Juanito Huerta MD Allergies, Adverse Reactions, Alerts Substance Reaction Severity Status NKA Active Immunizations Given and Recorded Vaccine Date Status Refusal Reason influenza virus vaccine, inactivated /07/27 Give n influenza virus vaccine, inactivated 1 03/17/18 Gi noemí influenza virus vaccine, inactivated 2 03/17/17 Gi noemí pneumococcal 23-valent vaccine 3 03/17/18 Given tetanus/diphtheria/pertussis, acel(Tdap) 4 09/15/17 Given pneumococcal 13-valent vaccine 03/17/17 Given 1Result Comment: [03/17/2018] [facility] 4921-403-88 2Result Comment: [03/17/2017] [facility] [id number] 3Result Comment: [03/17/2018] [facility] [id number] 4Result Comment: [09/15/2017] [facility] 05669-761-37 Medications aspirin 81 mg oral tablet 1 tablet = 81 mg, By Mouth, Daily, # 90 tablet, 0 Refills, Maintenance, 03/17/17 10:56:05, Tablet Start Date: 03/17/17 Status: Ordered levothyroxine 0.05 mg oral tablet 1 tablet = 50 mcg, By Mouth, Daily, # 90 tablet, 3 Refills, Maintenance, 06/14/20 7:11:00 EST, Tablet, [facility], 179.4, cm, 06/14/20 6:58:00 EST, Height Start Date: 06/14/20 Status: Ordered lisinopril 10 mg oral tablet 10 mg, 1, tablet, By Mouth, Daily, # 90 tablet, Refills 3, Tot. Refills 3, Maintenance, 06/14/20 7:11:00 EST, Route to Pharmacy Electronically, [facility], 179.4, cm, 06/14/20 6:58:00 EST,Height Start Date: 06/14/20 Status: Ordered pravastatin 40 mg oral tablet 1 tablet = 40 mg, By Mouth, Daily, # 90 tablet, 3 Refills, Maintenance, 06/14/20 7:11:00 EST, Tablet, [facility], 179.4, cm, 06/14/20 6:58:00 EST, Height Start Date: 06/14/20 Status: Ordered Problem List Condition Effective Dates Status Health Status Inform ant Hypothyroidism (acquired)(Confirmed) Active Benign essential hypertension(Confirmed) Active Hyperlipidemia(Confirmed) Active Left inguinal hernia(Confirmed) Active Pulmonary nodule(Confirmed) Active Prediabetes(Confirmed) Active Small bowel obstruction(Confirmed) Active Vital Signs Most recent to oldest [Reference Range]: 1 Height 179.4 cm (02/20/21 9:48 AM) Weight 102.0 kg (02/20/21 9:48 AM) Oxygen Saturation [94-100 %] 97 % (02/20/21 9:48 AM) Pulse Rate [55-90 bpm] 60 bpm (02/20/21 9:48 AM) Body Mass Index [18.5-24.99] 31.69 *>HHI* (02/20/21 9:48 AM) Blood Pressure [90-138/55-84 mm Hg] 122/ 78mm Hg (02/20/21 9:48 AM) Temperature [96.8-100.4 DegF] 98.2 DegF (02/20/21 9:48 AM) Mode of Delivery (Oxygen) Room air (02/20/21 9:48 AM) Blood pressure sites Arm, right (02/20/21 9:48 AM) Temperature Route Oral (02/20/21 9:48 AM) Weight Obtained Via Standing scale (02/20/21 9:48 AM) Social History Social History Type Response Smoking Status Former smoker; Type: Cigarettes; Other: QUIT 1976-SMOKING 1/ PPD-8 YR SMOKING HX; entered on: 03/17/17 Sex
--- OUTSIDE RECORDS SUMMARY | 2022-11-26 19:45 | XMS_ITS | Continuity of Care Document ---
Author Name Unknown Organization [facility] Sahil Giovany lt Address [address] [place] [address]- Care Team Providers Care Associate Professor Of Literature Name Role Phone Deanna MARQUEZ, Juanito Nash Primary Care Physician [phone] Encounter [facility] Date(s): 06/14/20 - 07/14/20 [facility] Adult [address] [place] [address]- Attending Physician: Admtr, Ar8 Admitting Physician: Admtr, Ar8 Referring Physician: Admtr, Ar8 Allergies, Adverse Reactions, Alerts Substance Reaction Severity [...] 2Result Comment: [03/17/2017] [facility] [id number] 3Result Comment: [03/17/2018] [facility] [id number] 4Result Comment: [09/15/2017] [facility] 82812-175-08 Medications aspirin 81 mg oral tablet 1 tablet = 81 mg, By Mouth, Daily, # 90 tablet, 0 Refills, Maintenance, 03/17/17 10:56:05, Tablet Start Date: 03/17/17 Status: Ordered levothyroxine 0.05 mg oral tablet 1 tablet = 50 mcg, By Mouth, Daily, # 90 tablet, 3 Refills, Maintenance, 06/14/20 7:11:00 EST, Tablet, [facility], 179.4, cm, 06/14/20 6:58:00 EST, Height Start Date: 06/14/20 Status: Ordered lisinopril 10 mg oral tablet 10 mg, 1, tablet, By Mouth, Daily, # 90 tablet, Refills 3, Tot. Refills 3, Maintenance, 06/14/20 7:11:00 EST, Route to Pharmacy Electronically, [facility], 179.4, cm, 06/14/20 6:58:00 EST,Height Start Date: 06/14/20 Status: Ordered pravastatin 40 mg oral tablet 1 tablet = 40 mg, By Mouth, Daily, # 90 tablet, 3 Refills, Maintenance, 06/14/20 7:11:00 EST, Tablet, [facility], 179.4, cm, 06/14/20 6:58:00 EST, Height Start Date: 06/14/20 Status: Ordered Problem List Condition Effective Dates Status Health Status Inform ant Hypothyroidism (acquired)(Confirmed) Active Benign essential hypertension(Confirmed) Active Hyperlipidemia(Confirmed) Active Left inguinal hernia(Confirmed) Active Pulmonary nodule(Confirmed) Active Prediabetes(Confirmed) Active Small bowel obstruction(Confirmed) Active Social History Social History Type Response Smoking Status Former smoker; Type: Cigarettes; Other: QUIT 1976-SMOKING 1/2 PPD-8 YR SMOKING HX; entered on: 03/17/17 Sex
--- OUTSIDE RECORDS SUMMARY | 2022-11-26 19:45 | XMS_ITS | Continuity of Care Document ---
Author Name Unknown Organization [facility] Address [address] [place] [address] [address] [place] [address]- Care Team Providers Care Stereotype Caster Name Role Phone Deanna MARQUEZ, Juanito Nash Primary Care Physician Encounter [facility] Date(s): 07/17/19 - 07/27/[address] [place] [address]- [facility] Attending Physician: Janki Gallegos Admitting Physician: AdmtrJanki Referring Physician: AdmtrJanki Allergies, Adverse Reactions, Alerts Substance Reaction Severity Status NKA Active Immunizations Given and Recorded Vaccine Date Status Refusal Reason influenza virus vaccine, inactivated 06/08/19 Give n influenza virus vaccine, inactivated 1 03/17/18 Gi noemí influenza virus vaccine, inactivated 2 03/17/17 Gi noemí pneumococcal 23-valent vaccine 3 03/17/18 Given tetanus/diphtheria/pertussis, acel(Tdap) 4 09/15/17 Given pneumococcal 13-valent vaccine 03/17/17 Given 1Result Comment: [03/17/2018] [facility] [id number] 2Result Comment: [03/17/2017] [facility] 26963-782-20 3Result Comment: [03/17/2018] [facility] [id number] 4Result Comment: [09/15/2017] [facility] 86424-720-57 Medications aspirin 81 mg oral tablet 1 [...] 07/19/18 14:29:15 EST, Route to Pharmacy Electronically, [id number], [id number] Start Date: 07/19/18 Status: Ordered pravastatin 40 [...]
--- OUTSIDE RECORDS SUMMARY | 2022-11-26 19:45 | XMS_ITS | Continuity of Care Document ---
Author Name Unknown Organization [facility] Giovany lt Address [address] [place] [address]- Care Team Providers Care Hypo Dipper Name Role Phone Deanna MARQUEZ, Juanito Nash Primary Care Physician Encounter [facility] [place] Date(s): 08/25/22 - 09/01/22 [facility] Adult [address] [place] [address]- Encounter Diagnosis Acute sinusitis(Discharge Diagnosis) - 08/25/22 Attending Physician: Shirley Luna Allergies, Adverse Reactions, Alerts No Known Allergies [...] 13-valent vaccine 03/17/17 Given 1Result Comment: [03/17/2018] [facility] [id number] 2Result Comment: [03/17/2017] [facility] [id number] 3Result Comment: [03/17/2018] [facility] [id number] 4Result Comment: [09/15/2017] [facility] [id number] Medications aspirin 81 mg oral tablet 1 tablet = 81 mg, By Mouth, Daily, # 90 tablet, 0 Refills, Maintenance, 03/17/17 10:56:05, Tablet Start Date: 03/17/17 Status: Ordered Flonase 50 mcg/inh nasal spray 1 sprays, Nares, Both, 2 times a day, # 16 Gm, 0 Refills, Maintenance, 08/25/22 10:17:00 EDT, [place], [facility], Partial fill upon patient request if the prescription is for a schedule II opioid drug., 1 sprays Nares, Both 2 times a day, 17... Start Date: 08/25/22 Status: Ordered levothyroxine 0.05 mg oral tablet 1 tablet, By Mouth, Daily, # 90 tablet, 1 Refills, Maintenance, 06/30/22 14:10:00 EST, [facility], 179.4, cm, 03/11/22 12:43:00 EDT, Height Start Date: 06/30/22 Status: Ordered lisinopril 10 mg oral tablet 1, tablet, By Mouth, Daily, # 90 tablet, Refills 1, Tot. Refills 1, Maintenance, 06/30/22 14:18:00 EST, Route to Pharmacy Electronically, [facility], 179.4, cm, 03/11/22 12:43:00 EDT, Height Start Date: 06/30/22 Status: Ordered pravastatin 40 mg oral tablet 1 tablet, By Mouth, Daily, # 90 tablet, 1 Refills, Maintenance, 06/30/22 14:10:00 EST, [facility]278, 179.4, cm, 03/11/22 12:43:00 EDT, Height Start Date: 06/30/22 Status: Ordered Problem List Condition Confirmation Course Effective Dates Status H ealth Status Informant Hypothyroidism (acquired) Confirmed Active Benign essential hypertension Confirmed Active Hyperlipidemia Confirmed Active Left inguinal hernia Confirmed Active Pulmonary nodule Confirmed Active Obese class I Confirmed Active Prediabetes Confirmed Active Small bowel obstruction Confirmed Active Diagnosis Diagnosis Type Effective Dates Health Status inical Service Informant Acute sinusitis Discharge Diagnosis 08/25/22 Vital Signs Most recent to oldest [Reference Range]: 1 Height 179.4 cm (08/25/22 10:08 AM) Social History Social History Type Response Smoking Status Former smoker; Type: Cigarettes; Other: QUIT 1976-SMOKING 1/2 PPD-8 YR SMOKING HX; entered on: 03/17/17 Sex Patient Care team information Care Team Personnel Name: Juanito Huerta MD Position: S Primary Care Physician Member Role: PCP Address: Address: [address] [place] [address]- Care Team Related Persons Name: KENTON BOURGEOIS
--- OUTSIDE RECORDS SUMMARY | 2022-11-26 19:45 | XMS_ITS | Continuity of Care Document ---
Author Name Unknown Organization [facility] Devante Baxter Giovany lt Address [address] [place] [address]- Care Team Providers Care Raw Stock Dyeing Machine Tender Name Role Phone eDanna MARQUEZ, Juanito Nash Primary Care Physician Encounter [facility] Date(s): 03/11/22 - 04/10/22 [facility] Devante Baxter Adult [address] [place] [address]- Attending Physician: Admtr, Ar8 Admitting Physician: Admtr, Ar8 Referring Physician: Admtr, Ar8 Allergies, Adverse Reactions, Alerts No Known Allergies [...] Comment: [03/17/2018] [facility] [id number] 2Result Comment: [03/17/2017] [facility] [id number] 3Result Comment: [03/17/2018] [facility] [id number] 4Result Comment: [09/15/2017] [facility] [id number] Medications aspirin 81 mg oral tablet 1 tablet = 81 mg, By Mouth, Daily, # 90 tablet, 0 Refills, Maintenance, 03/17/17 10:56:05, Tablet Start Date: 03/17/17 Status: Ordered Euthyrox 50 mcg (0.05 mg) oral tablet 1 tablet, By Mouth, Daily, # 90 tablet, 1 Refills, Maintenance, 12/12/21 16:02:00 EDT, [facility], 179.4, cm, 09/04/21 9:06:00 EDT, Height Start Date: 12/12/21 Status: Ordered lisinopril 10 mg oral tablet 1, tablet, By Mouth, Daily, # 90 tablet, Refills 1, Tot. Refills 1, Maintenance, 12/31/21 15:47:00 EDT, Route to Pharmacy Electronically, [facility], 179.4, cm, 09/04/21 9:06:00 EDT, Height Start Date: 12/31/21 Status: Ordered pravastatin 40 mg oral tablet 1 tablet, By Mouth, Daily, # 90 tablet, 1 Refills, Maintenance, 12/31/21 15:47:00 EDT, [facility], 179.4, cm, 09/04/21 9:06:00 EDT, Height Start Date: 12/31/21 Status: Ordered Problem List Condition Confirmation Course Effective Dates Status H ealth Status Informant Hypothyroidism (acquired) Confirmed Active Benign essential hypertension Confirmed Active Hyperlipidemia Confirmed Active Left inguinal hernia Confirmed Active Pulmonary nodule Confirmed Active Obese class I Confirmed Active Prediabetes Confirmed Active Small bowel obstruction Confirmed Active Social History Social History Type Response Smoking Status Former smoker; Type: Cigarettes; Other: QUIT 1976-SMOKING 1/2 PPD-8 YR SMOKING HX; entered on: 03/17/17 Sex Patient Care team information Personnel Name: Juanito Huerta MD Address: Address: [address] [place] [id number]
--- OUTSIDE RECORDS SUMMARY | 2022-11-26 19:45 | XMS_ITS | Continuity of Care Document ---
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 Role Phone Deanna MARQUEZ, Juanito Nash Primary Care Physician [phone] [place] [facility] [place] [facility] [address] [place] [address]- [facility] Attending Physician: Janki Gallegos Admitting Physician: AdmtrJanki [...] 13-valent vaccine 03/17/17 Given 1Result Comment: [03/17/2018] [facility] [id number] 2Result Comment: [03/17/2017] [facility] [id number] 3Result Comment: [03/17/2018] [facility] [id number] 4Result Comment: [09/15/2017] [facility] [id number] Medications aspirin 81 mg oral tablet 1 tablet = 81 mg, By Mouth, Daily, # 90 tablet, 0 Refills, Maintenance, 03/17/17 10:56:05, Tablet Start Date: 03/17/17 Status: Ordered levothyroxine 0.05 mg oral tablet 1 tablet = 50 mcg, By Mouth, Daily, # 90 tablet, 1 Refills, Maintenance, 08/24/19 13:11:00 EDT, Tablet, [facility], 179.4, cm, 06/08/19 14:11:00 EST, Height Start Date: 08/24/19 Status: Ordered lisinopril 10 mg oral tablet 10 mg, 1, tablet, By Mouth, Daily, # 90 tablet, Refills 1, Tot. Refills 1, Maintenance, 08/24/19 13:11:00 EDT, Route to Pharmacy Electronically, [facility], 179.4, cm, 06/08/19 14:11:00 EST, Height Start Date: 08/24/19 Status: Ordered pravastatin 40 mg oral tablet 1 tablet = 40 mg, By Mouth, Daily, # 90 tablet, 1 Refills, Maintenance, 08/24/19 13:11:00 EDT, Tablet, [facility], 179.4, cm, 06/08/19 14:11:00 [...]
--- OUTSIDE RECORDS SUMMARY | 2022-11-26 19:45 | XMS_ITS | Continuity of Care Document ---
Author Name Unknown Organization [facility] Devante Baxter Giovany lt Address [address] [place] [address]- Care Team Providers Care Welt Insole Channeler Name Role Phone Deanna MARQUEZ, Juanito Nash Primary Care Physician [place] [facility] [place] 01[place]10/20 [facility] Adult [address] [place] [address]- [facility] Allergies, Adverse Reactions, Alerts Substance Reaction Severity Status NKA Active Immunizations Given and Recorded Vaccine Date Status Refusal Reason influenza virus vaccine, inactivated 06/08/19 Give n influenza virus vaccine, inactivated 1 03/17/18 Gi noemí influenza virus vaccine, inactivated 2 03/17/17 Gi noemí pneumococcal 23-valent vaccine 3 03/17/18 Given tetanus/diphtheria/pertussis, acel(Tdap) 4 09/15/17 Given pneumococcal 13-valent vaccine 03/17/17 Given 1Result Comment: [03/17/2018] [facility] [id number] 2Result Comment: [03/17/2017] [facility] [id number] 3Result Comment: [03/17/2018] [facility] [id number] 4Result Comment: [09/15/2017] [facility] [id number] Medications aspirin 81 mg oral tablet 1 [...]
--- OUTSIDE RECORDS SUMMARY | 2022-11-26 19:45 | XMS_ITS | Continuity of Care Document ---
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 [place] Date(s): 06/14/20 - 06/21/20 [facility] Adult [address] [place] [address]- Attending Physician: Juanito Huerta MD Allergies, Adverse [...] 13-valent vaccine 03/17/17 Given 1Result Comment: [03/17/2018] [facility] [id number] 2Result Comment: [03/17/2017] [facility] [id number] 3Result Comment: [03/17/2018] [facility] [id number] 4Result Comment: [09/15/2017] [facility] [id number] Medications aspirin 81 mg oral tablet 1 tablet = 81 mg, By Mouth, Daily, # 90 tablet, 0 Refills, Maintenance, 03/17/17 10:56:05, Tablet Start Date: 03/17/17 Status: Ordered levothyroxine 0.05 mg oral tablet 1 tablet = 50 mcg, By Mouth, Daily, # 90 tablet, 3 Refills, Maintenance, 06/14/20 7:11:00 EST, Tablet, [facility], 179.4, cm, 06/14/20 6:58:00 EST, Height Start Date: 06/14/20 Status: Ordered lisinopril 10 mg oral tablet 10 mg, 1, tablet, By Mouth, Daily, # 90 tablet, Refills 3, Tot. Refills 3, Maintenance, 06/14/20 7:11:00 EST, Route to Pharmacy Electronically, [facility], 179.4, cm, 06/14/20 6:58:00 EST,Height Start Date: 06/14/20 Status: Ordered pravastatin 40 mg oral tablet 1 tablet = 40 mg, By Mouth, Daily, # 90 tablet, 3 Refills, Maintenance, 06/14/20 7:11:00 EST, Tablet, [facility], 179.4, cm, 06/14/20 6:58:00 EST, Height Start Date: 06/14/20 Status: Ordered Problem List Condition Effective Dates Status Health Status Inform ant Hypothyroidism (acquired)(Confirmed) Active Benign essential hypertension(Confirmed) Active Hyperlipidemia(Confirmed) Active Left inguinal hernia(Confirmed) Active Pulmonary nodule(Confirmed) Active Prediabetes(Confirmed) Active Small bowel obstruction(Confirmed) Active Vital Signs Most recent to oldest [Reference Range]: 1 Height 179.4 cm (06/14/20 6:58 AM) Social History Social History Type Response Smoking Status Former smoker; Type: Cigarettes; Other: QUIT 1977-SMOKING 1/2 PPD-8 YR SMOKING HX; entered on: 03/17/17 Sex
--- OUTSIDE RECORDS SUMMARY | 2022-11-26 19:45 | XMS_ITS | Continuity of Care Document ---
Author Name Unknown Organization [facility] Devante Baxter Giovany lt Address [address] [place] [address]- Care Team Providers Care Equal Opportunity Assistant Name Role Phone Juanito Huerta MD Primary Care Physician [place] [facility] [place] - 03/18/22 [facility] Adult [address] [place] [address]- Attending Physician: Juanito Huerta MD Allergies, Adverse [...] 13-valent vaccine 03/17/17 Given 1Result Comment: [03/17/2018] [facility] [id number] 2Result Comment: [03/17/2017] [facility] [id number] 3Result Comment: [03/17/2018] [facility] [id number] 4Result Comment: [09/15/2017] [facility] [id number] Medications aspirin 81 mg oral tablet 1 tablet = 81 mg, By Mouth, Daily, # 90 tablet, 0 Refills, Maintenance, 03/17/17 10:56:05, Tablet Start Date: 03/17/17 Status: Ordered Euthyrox 50 mcg (0.05 mg) oral tablet 1 tablet, By Mouth, Daily, # 90 tablet, 1 Refills, Maintenance, 12/12/21 16:02:00 EDT, [facility], 179.4, cm, 09/04/21 9:06:00 EDT, Height Start Date: 12/12/21 Status: Ordered lisinopril 10 mg oral tablet 1, tablet, By Mouth, Daily, # 90 tablet, Refills 1, Tot. Refills 1, Maintenance, 12/31/21 15:47:00 EDT, Route to Pharmacy Electronically, [facility], 179.4, cm, 09/04/21 9:06:00 EDT, Height Start Date: 12/31/21 Status: Ordered pravastatin 40 mg oral tablet 1 tablet, By Mouth, Daily, # 90 tablet, 1 Refills, Maintenance, 12/31/21 15:47:00 EDT, [facility], 179.4, cm, 09/04/21 9:06:00 EDT, [...] oldest [Reference Range]: 1 Height 179.4 cm (03/11/22 12:43 PM) Weight 100.2 kg (03/11/22 12:43 PM) Oxygen Saturation [94-100 %] 98 % (03/11/22 12:43 PM) Pulse Rate [55-90 bpm] 59 bpm (03/11/22 12:43 PM) Body Mass Index [18.5-24.99 kg/m2] 31.13 kg/m2 *>HHI* (03/11/22 12:43 PM) Blood Pressure [90-138/55-84 mm Hg] 137/ 77mm Hg (03/11/22 12:43 PM) Temperature [96.8-100.4 DegF] 97.6 DegF (03/11/22 12:43 PM) Blood pressure sites Arm, left (03/11/22 12:43 PM) Temperature Route Temporal (03/11/22 12:43 PM) Weight Obtained Via Standing scale (03/11/22 12:43 PM) Social History Social History Type Response Smoking Status Former smoker; Type: Cigarettes; Other: QUIT 1976-SMOKING 1/2 PPD-8 YR SMOKING HX; entered on: 03/17/17 Sex Patient Care team information Personnel Name: Deanna MARQUEZ, Juanito Nash Address: Address: [address] [place] [id number]
--- OUTSIDE RECORDS SUMMARY | 2022-11-26 19:45 | XMS_ITS | Continuity of Care Document ---
Author Name Unknown Organization [facility] ter Address [address] [place] [address]- Care Team Providers Care Client Professional Name Role Phone Deanna MARQUEZ, Juanito Nash Primary Care Physician [phone] [place] [facility] [place] 03/20/19 - 07/28/[address] [address] [facility] Attending Physician: Mi Stafford MD Admitting Physician: Mi Stafford MD Allergies, Adverse Reactions, [...] 13-valent vaccine 03/17/17 Given 1Result Comment: [03/17/2018] [facility] [place] [id number] 2Result Comment: [03/17/2017] [facility] [place] [id number] 3Result Comment: [03/17/2018] [facility] [place] [id number] 4Result Comment: [09/15/2017] [facility] [place] 42237-063-37 Medications aspirin 81 mg oral tablet 1 [...] 07/19/18 14:29:15 EST, Route to Pharmacy Electronically, [id number], [facility] [id number] Start Date: 07/19/18 Status: Ordered pravastatin 40 [...]
--- OUTSIDE RECORDS SUMMARY | 2022-11-26 19:45 | XMS_ITS | Continuity of Care Document ---
Author Name Unknown Organization [facility] Sahil Giovany lt Address [address] [place] [address]- Care Team Providers Care Drapery Hemmer Automatic Name Role Phone Deanna MARQUEZ, Juanito Nash Primary Care Physician [phone] Encounter [facility] Date(s): 01/16/20 - 02/15/20 [facility] Adult [address] [place] [address]- [facility] Allergies, Adverse Reactions, Alerts Substance Reaction Severity Status NKA Active Immunizations Given and Recorded Vaccine Date Status Refusal Reason influenza virus vaccine, inactivated 06/08/19 Give n influenza virus vaccine, inactivated 1 03/17/18 Gi noemí influenza virus vaccine, inactivated 2 03/17/17 Gi noemí pneumococcal 23-valent vaccine 3 03/17/18 Given tetanus/diphtheria/pertussis, acel(Tdap) 4 09/15/17 Given pneumococcal 13-valent vaccine 03/17/17 Given 1Result Comment: [03/17/2018] [facility] [id number] 2Result Comment: [03/17/2017] [facility] [id number] 3Result Comment: [03/17/2018] [facility] [id number] 4Result Comment: [09/15/2017] [facility] 27736-406-19 Medications aspirin 81 mg oral tablet 1 tablet = 81 mg, By Mouth, Daily, # 90 tablet, 0 Refills, Maintenance, 03/17/17 10:56:05, Tablet Start Date: 03/17/17 Status: Ordered levothyroxine 0.05 mg oral tablet 1 tablet = 50 mcg, By Mouth, Daily, # 90 tablet, 1 Refills, Maintenance, 08/24/19 13:11:00 EDT, Tablet, [facility], 179.4, cm, 06/08/19 14:11:00 EST, Height Start Date: 08/24/19 Status: Ordered lisinopril 10 mg oral tablet 10 mg, 1, tablet, By Mouth, Daily, # 90 tablet, Refills 1, Tot. Refills 1, Maintenance, 08/24/19 13:11:00 EDT, Route to Pharmacy Electronically, [facility], 179.4, cm, 06/08/19 14:11:00 EST, Height Start Date: 08/24/19 Status: Ordered pravastatin 40 mg oral tablet 1 tablet = 40 mg, By Mouth, Daily, # 90 tablet, 1 Refills, Maintenance, 08/24/19 13:11:00 EDT, Tablet, [facility], 179.4, cm, 06/08/19 14:11:00 [...]
[2022-11-26 20:00] VITALS: BP 134/75; PULSE 75; RESP 16; TEMP 36.9; O2SAT 98
--- NOTE | 2022-11-26 20:22 | PC.NURSE ---
pt a&ox4, vss, reporting dizziness has resolved, cont'd h/a. pt pending CT results. no new orders at this time.
--- NOTE | 2022-11-26 20:59 | PC.NURSE ---
pt alert, orientedx4. resting. no distress. talks clearly. fluids done. piv cdi. no pain. no syncope. reports dizziness improving. voided
[2022-11-26 21:32] VITALS: BP 129/91; PULSE 84; RESP 16; TEMP 36.2; O2SAT 98
== END 2022-11-26 21:45 | disposition home or self-care (01) ==
PROVIDERS: Emergency Provider Emergency Medicine; PCP Family Medicine
DX: R42 Dizziness and giddiness (principal); Z20.822 Contact with and (suspected) exposure to COVID-19; I10 Essential (primary) hypertension; E78.5 Hyperlipidemia, unspecified; Z87.891 Personal history of nicotine dependence
CPT/HCPCS: 36415; 70450; 80048; 80076; 83735; 84484; 85025; 87635; 93005; 96361; 96374; 99284; 99285; J2405